=== PATIENT | female | born 1965 | race American Indian/Alaskan Native ===

== ENCOUNTER 2018-04-25 19:57 | Inpatient (IN) | payer OTHER ==
[2018-05-02 16:26] VITALS: BMI 31.1
--- NOTE | 2018-05-02 16:46 | CP.PCM.HP ---
<Samir Greco - Last Filed: 05/02/18 16:50> History of Present Illness - History of Present Illness History of Present Illness: CC: 24 hour video EEG HPI: 52 y/o woman w/ pmh of Hx of PE (2006) and DVT (2007) on AC, seizure disorder, HTN, asthma, anemia presents for 24 hour video EEG. Patient complains of mild headache but otherwise has no complaints. Patient denies dizzines, chest pain, dyspnea, abdominal pain, nausea, vomiting, or fever. PMD: Dr. Dano Gutierrez PMH: Hx of PE on AC, seizure disorder, HTN, asthma, anemia meds: see med list allergies: amoxicillin, metoclopramide PSH: hysterectomy, bowel obstruction, hernia repair, removal of left cyst on ear Fam Hx: brother seizure disorder, mother () DM/HTN, father has prostate cancer SOC: denies smoking, alcohol, and drugs ROS: 12 points assessed and negative unless otherwise reported Present on Admission - Present on Admission Any Indicators Present on Admission: Yes History of DVT/PE: Yes History of Uncontrolled Diabetes: No Urinary Catheter: No Decubitus Ulcer Present: No Review of Systems - Review of Systems All systems: reviewed and no additional remarkable complaints except - Constitutional Constitutional: Headache. absent: Chills, Fever - EENT Eyes: absent: Change in Vision - Cardiovascular Cardiovascular: absent: Chest Pain, Palpitations - Respiratory Respiratory: absent: Dyspnea - Gastrointestinal Gastrointestinal: absent: Abdominal Pain, Nausea, Vomiting - Genitourinary Genitourinary: absent: Dysuria - Integumentary Integumentary: absent: Rash Past Patient History - Infectious Disease Hx of Infectious Diseases: None - Past Social History Smoking Status: Never Smoked - CARDIAC Hx Cardiac Disorders: Yes Hx Hypertension: Yes Other/Comment: lle dvt - PULMONARY Hx Respiratory Disorders: Yes (pe x4 at same time 2006) Hx Asthma: Yes - NEUROLOGICAL Hx Neurological Disorder: Yes Hx Seizures: Yes (hx of 3-4 years ago) - HEENT Hx HEENT Problems: No - RENAL Hx Chronic Kidney Disease: No - ENDOCRINE/METABOLIC Hx Endocrine Disorders: No - HEMATOLOGICAL/ONCOLOGICAL Hx Blood Disorders: Yes Hx Anemia: Yes Other/Comment: iron infusions - INTEGUMENTARY Hx Dermatological Problems: No - MUSCULOSKELETAL/RHEUMATOLOGICAL Hx Falls: No - GASTROINTESTINAL Hx Gastrointestinal Disorders: Yes (chronic constipation) - GENITOURINARY/GYNECOLOGICAL Hx Genitourinary Disorders: No - PSYCHIATRIC Hx Substance Use: No - SURGICAL HISTORY Hx Hysterectomy: Yes Other/Comment: bowel obstruction repair, tubal ligation, sebaceous cyst removed from near Left ear, umbilical hernia repair - ANESTHESIA Hx Anesthesia: Yes Hx Anesthesia Reactions: No Meds Allergies/Adverse Reactions: Allergies Allergy/AdvReac Type Severity Reaction Status Date / Time amoxicillin Allergy RASH Verified 01/15/17 12:10 metoclopramide Allergy RASH Verified 01/15/17 12:10 Physical Exam - Constitutional Appears: Well, Non-toxic, No Acute Distress - Head Exam Head Exam: ATRAUMATIC, NORMAL INSPECTION, NORMOCEPHALIC - Eye Exam Eye Exam: Normal appearance - ENT Exam ENT Exam: Mucous Membranes Moist - Neck Exam Neck exam: Positive for: Full Rom. Negative for: Tenderness - Respiratory Exam Respiratory Exam: Clear to Auscultation Bilateral, NORMAL BREATHING PATTERN. absent: Decreased Breath Sounds, Rales, Rhonchi, Wheezes, Respiratory Distress - Cardiovascular Exam Cardiovascular Exam: REGULAR RHYTHM, RRR, +S1, +S2 - GI/Abdominal Exam GI & Abdominal Exam: Normal Bowel Sounds, Soft. absent: Distended, Tenderness - Extremities Exam Extremities exam: Negative for: pedal edema, tenderness - Neurological Exam Neurological exam: Alert, CN II-XII Intact, Normal Gait, Oriented x3 - Psychiatric Exam Psychiatric exam: Normal Affect, Normal Mood - Skin Skin Exam: Dry, Intact, Normal Color, Warm Assessment & Plan - Assessment and Plan (Free Text) Assessment: 52 y/o woman w/ pmh of Hx of PE (2006) and DVT (2007) on AC, seizure disorder, HTN, asthma, anemia presents for 24 hour video EEG. Plan: Seizure Disorder - Hx of seizure disorder on and off for years - on and off various anticonvulsants due to varying side effects - most currently on topimax, last taken 04/29/2018 - neurology, Dr. Zapata aware - admit to ICU for 24 video EEG Hx of PE and DVT - an coumadin 5 mg PO daily, patient took medication today - patient refusing bloodwork HTN - controlled w/ medication Asthma - controlled w/ medication Prophylactic measures - c/w protonix 40 mg PO BID - zofran for nausea prn <Bruno,Sina D - Last Filed: 05/02/18 18:18> Results - Vital Signs Recent Vital Signs: Last Vital Signs Temp Pulse Resp 14 05/02/18 17:39 BP Pulse Ox Attending/Attestation - Attestation I have personally seen and examined this patient.: Yes I have fully participated in the care of the patient.: Yes I have reviewed all pertinent clinical information: Yes Notes (Text): 05/02/18 18:17 Patient seen and examined with resident. Case was discussed and agreed with assessment.
[2018-05-02] MEDS: Albuterol HFA 90 mcg/actuation (8 g) IH SCH (22:29)
[2018-05-03] MEDS: Albuterol HFA 90 mcg/actuation (8 g) IH SCH ×3 (04:29→16:19)
[2018-05-03] MEDS: Pantoprazole 40 mg EC Tab PO SCH ×2 (06:30→16:19)
--- NOTE | 2018-05-03 08:06 | CP.CCUPN ---
CCU Subjective - Physician Review Events Since Last Encounter (Free Text): Patient awake, no distress, no fever, no vomiting, follow commands, events reviewed CCU Objective - Vital Signs / Intake & Output Intake and Output (Last 8hrs): Intake & Output 05/02/18 05/03/18 05/03/18 22:59 06:59 14:59 Weight 199 lb - Physical Exam Head: Positive for: Atraumatic, Normocephalic Pupils: Positive for: PERRL Extroacular Muscles: Positive for: EOMI Conjunctiva: Positive for: Normal Mouth: Positive for: Moist Mucous Membranes Neck: Positive for: Normal Range of Motion Respiratory/Chest: Positive for: Clear to Auscultation Cardiovascular: Positive for: Regular Rate and Rhythm Abdomen: Positive for: Normal Bowel Sounds Upper Extremity: Positive for: Normal Inspection Lower Extremity: Positive for: Normal Inspection Neurological: Positive for: Speech Normal Psychiatric: Positive for: Alert, Oriented x 3 - Medications Active Medications: Active Medications Generic Name Dose Route Start Last Admin Trade Name Freq PRN Reason Stop Dose Admin Acetaminophen 650 mg 05/02/18 19:46 05/02/18 20:30 Tylenol 325mg Tab PO 650 mg Q6 PRN Administration Headache Albuterol 1 puff 05/02/18 16:28 05/03/18 04:29 Ventolin Hfa 90 Mcg/Actuation (8 G) IH Not Given Q6 JOSE E Losartan Potassium 100 mg 05/02/18 16:30 05/02/18 17:31 Cozaar PO Not Given DAILY JOSE E Meclizine HCl 50 mg 05/02/18 16:28 Antivert PO DAILY PRN Dizziness Ondansetron HCl 4 mg 05/02/18 16:28 Zofran Odt PO Q8 PRN Nausea/Vomiting Pantoprazole Sodium 40 mg 05/03/18 06:00 05/03/18 06:30 Protonix Ec Tab PO 40 mg 0600,1600 JOSE E Administration Propranolol HCl 10 mg 05/02/18 16:30 05/02/18 17:32 Inderal PO Not Given DAILY [facility] Critical Care Progress Note - Nutrition Nutrition: Nutrition Category Date Time Status Heart Healthy Diet [DIET] Diets 05/02/18 Dinner Active Assessment/Plan - Assessment and Plan (Free Text) Assessment: A/P Seizer disorder, h/o PE/DVT, HTN, asthma, anemia - EEG - Neurology follow up - Continue meds
--- NOTE | 2018-05-03 08:16 | CP.PCM.PN ---
Subjective - Date & Time of Evaluation Date of Evaluation: 05/03/18 Time of Evaluation: 10:57 - Subjective Subjective: Patient seen and examined at bedside this morning. There are no acute events overnight, NAD. Patient laying down in bed comfortably and continuing 24 hour video EEG. Currently no seizure activity noted. Patient reports migraine last night that resolved w/ medication. Patient currently denies headache, chest pain, dizziness, dyspnea, abdominal pain, nausea, vomiting, or fever. Objective - Vital Signs/Intake and Output Vital Signs (last 24 hours): Temp Pulse Resp BP Pulse Ox 98 F 77 13 134/79 100 05/02/18 20:00 05/02/18 20:00 05/02/18 20:00 05/02/18 20:00 05/02/18 20:00 - Medications Medications: Current Medications Acetaminophen (Tylenol 325mg Tab) 650 mg PO Q6 PRN PRN Reason: Headache Last Admin: 05/02/18 20:30 Dose: 650 mg Albuterol (Ventolin Hfa 90 Mcg/Actuation (8 G)) 1 puff IH Q6 [facility] Last Admin: 05/03/18 04:29 Dose: Not Given Losartan Potassium (Cozaar) 100 mg PO DAILY [facility] Last Admin: 05/02/18 17:31 Dose: Not Given Meclizine HCl (Antivert) 50 mg PO DAILY PRN PRN Reason: Dizziness Ondansetron HCl (Zofran Odt) 4 mg PO Q8 PRN PRN Reason: Nausea/Vomiting Pantoprazole Sodium (Protonix Ec Tab) 40 mg PO 0600,1600 [facility] Last Admin: 05/03/18 06:30 Dose: 40 mg Propranolol HCl (Inderal) 10 mg PO DAILY [facility] Last Admin: 05/02/18 17:32 Dose: Not Given - Constitutional Appears: Non-toxic, No Acute Distress - Head Exam Head Exam: NORMAL INSPECTION - Eye Exam Eye Exam: Normal appearance - ENT Exam ENT Exam: Mucous Membranes Moist - Neck Exam Neck Exam: Full ROM. absent: Tenderness - Respiratory Exam Respiratory Exam: Clear to Ausculation Bilateral, NORMAL BREATHING PATTERN. absent: Decreased Breath Sounds, Rales, Rhonchi, Respiratory Distress - Cardiovascular Exam Cardiovascular Exam: REGULAR RHYTHM, RRR - GI/Abdominal Exam GI & Abdominal Exam: Soft, Normal Bowel Sounds. absent: Distended, Tenderness - Extremities Exam Extremities Exam: Normal Inspection. absent: Pedal Edema - Neurological Exam Neurological Exam: Alert, Awake, Normal Gait, Oriented x3 - Psychiatric Exam Psychiatric exam: Normal Affect, Normal Mood - Skin Skin Exam: Dry, Intact, Normal Color, Warm Assessment and Plan - Assessment and Plan (Free Text) Assessment: 52 y/o woman w/ pmh of Hx of PE (2006) and DVT (2007) on AC, seizure disorder, HTN, asthma, anemia presents for 24 hour video EEG. Plan: Seizure Disorder - Hx of seizure disorder on and off for years - on and off various anticonvulsants due to varying side effects - most currently on topimax, last taken 04/29/2018 - neurology consulted, Dr. Zapata aware - admit to ICU for 24 video EEG Hx of PE and DVT - an coumadin 5 mg PO daily, patient took medication today - patient refusing bloodwork HTN - controlled w/ medication Asthma - controlled w/ medication Prophylactic measures - c/w protonix 40 mg PO BID - zofran for nausea prn anticipate DC today upon completion of 24 hour video EEG
--- NOTE | 2018-05-03 08:43 | PCM.VEEG ---
Video EEG - Procedure Start Date: 05/02/18 Start Time: 17:30 End Date: 05/03/18 End Time: 08:00 Technical Summary: DATA ACQUISITION: This was a multichannel inpatient video-EEG, a minimum of 22 channels were uti lized, performed in accordance with recommendations specified by the [place] [employer] (Qi Rao et al. ACNS Guideline 1: Minimum Technical Requirements for Performing Clinical Electroencephalography. Journal of Clinical Neurophysiology 2016;33:303-7). The 10-20 electrode placement system was utilized in accordance with guidelines detailed by the International Federation of Clinical Neurophysiology (Oskar So et al. The Ten-Twenty Electrode System of the International Federation. Recommendations for the Practice of Clinical Neurophysiology: Guidelines of the International Federation of Clinical Physiology 1999; EEG Suppl. 52.). DATA REVIEW / SPIKE DETECTION / DIGITAL ANALYSIS: The entire EEG was scanned and reviewed. Synchronized audio and video recording were reviewed at the time of each alarm and whenever an abnormality or suspicious activity was noted. The entire recording was analyzed utilizing an automated digital spike and seizure analysis program and all automatic spike and seizure detections were manually reviewed. A compressed spectral array was displayed and reviewed alongside the raw EEG tracings. In addition, further analysis of the EEG was performed when abnormalities were identified, including montage changes, dipole source localization, and frequency band identification. Video portion of the study is necessary to correlate abnormal EEG activity with clinical behavior. This study was attended 24 hours per day - Interpretation Description of the study: Indication; Epilepsy EEG Finding during wakefulness: During active states, the EEG was characterized by 14-25 Hz, 15-30 uV activity bilaterally in fronto-central regions. Resting wakefulness was characterized by a symmetric posterior dominant rhythm of 9 to 10 Hz, 30-50 uV, which was reactive to eye opening and closing. Drowsiness was associated with slow roving eye movements, slowing and fragmentation of the posterior dominant rhythm, and bilateral 4-7 Hz, 40-70 uV theta activity, sometimes with a shifting predominance. Hyperventilation and photic stimulation were not performed. EEG Finding during sleep: Light sleep was recorded and was characterized by fronto-central slowing at 5-7 H, 50-125 uV, sharp central vertex waves, bilateral sleep spindles, and K- complexes; shifting asymmetries were evident. Deeper stages of sleep were recorded and were characterized an increasing frequency of 1-4 Hz, 50-100 uV delta activity. REM sleep was also recorded and was characterized by mixed frequency (3-15 Hz) low voltage (< 20 uV) activity with clusters of rapid horizontal and vertical eye movements. There were no significant asymmetries noted during sleep. Interictal non-epileptiform abnormalities: None Interictal epileptiform abnormalities: None Ictal epileptiform abnormalities: None There was 1 PB activation, NO EEG changes, probably accidental Induction procedures: None - Impression Impression: This is a normal inpatient Video EEG monitoring study.
--- NOTE | 2018-05-03 15:17 | CP.PCM.CON ---
History of Present Illness - History of Present Illness History of Present Illness: Neurology Consultation Note: Mrs. Rodriguez is a 52-year-old woman, who is a patient of Dr. Peres, referred to me by Dr. Padgett, with a past medical history of migraine headaches, PE (2006) and DVT (2007) on AC, seizure disorder (occasional GTC, usually night terrors), HTN, asthma, anemia, who was admitted for elective 24-hour EEG. She had a migraine yesterday, but states that she feels well today. She had no complaints. Review of Systems - Review of Systems All systems: reviewed and no additional remarkable complaints except Past Patient History - Infectious Disease Hx of Infectious Diseases: None - Past Social History Smoking Status: Never Smoked - CARDIAC Hx Cardiac Disorders: Yes Hx Hypertension: Yes Other/Comment: lle dvt - PULMONARY Hx Respiratory Disorders: Yes (pe x4 at same time 2006) Hx Asthma: Yes - NEUROLOGICAL Hx Neurological Disorder: Yes Hx Seizures: Yes (hx of 3-4 years ago) - HEENT Hx HEENT Problems: No - RENAL Hx Chronic Kidney Disease: No - ENDOCRINE/METABOLIC Hx Endocrine Disorders: No - HEMATOLOGICAL/ONCOLOGICAL Hx Blood Disorders: Yes Hx Anemia: Yes Other/Comment: iron infusions - INTEGUMENTARY Hx Dermatological Problems: No - MUSCULOSKELETAL/RHEUMATOLOGICAL Hx Falls: No - GASTROINTESTINAL Hx Gastrointestinal Disorders: Yes (chronic constipation) - GENITOURINARY/GYNECOLOGICAL Hx Genitourinary Disorders: No - PSYCHIATRIC Hx Substance Use: No - SURGICAL HISTORY Hx Hysterectomy: Yes Other/Comment: bowel obstruction repair, tubal ligation, sebaceous cyst removed from near Left ear, umbilical hernia repair - ANESTHESIA Hx Anesthesia: Yes Hx Anesthesia Reactions: No Meds Allergies/Adverse Reactions: Allergies Allergy/AdvReac Type Severity Reaction Status Date / Time amoxicillin Allergy RASH Verified 01/15/17 12:10 metoclopramide Allergy RASH Verified 01/15/17 12:10 - Medications Medications: Current Medications Acetaminophen (Tylenol 325mg Tab) 650 mg PO Q6 PRN PRN Reason: Headache Last Admin: 05/02/18 20:30 Dose: 650 mg Albuterol (Ventolin Hfa 90 Mcg/Actuation (8 G)) 1 puff IH Q6 JOSE E Last Admin: 05/03/18 09:02 Dose: 1 puff Losartan Potassium (Cozaar) 100 mg PO DAILY [facility] Last Admin: 05/03/18 08:41 Dose: Not Given Meclizine HCl (Antivert) 50 mg PO DAILY PRN PRN Reason: Dizziness Ondansetron HCl (Zofran Odt) 4 mg PO Q8 PRN PRN Reason: Nausea/Vomiting Pantoprazole Sodium (Protonix Ec Tab) 40 mg PO 0600,1600 [facility] Last Admin: 05/03/18 06:30 Dose: 40 mg Propranolol HCl (Inderal) 10 mg PO DAILY [facility] Last Admin: 05/03/18 08:43 Dose: Not Given Physical Exam - Constitutional Appears: Well - Head Exam Head Exam: ATRAUMATIC, NORMAL INSPECTION, NORMOCEPHALIC - Eye Exam Eye Exam: EOMI, Normal appearance, PERRL Pupil Exam: NORMAL ACCOMODATION, PERRL - ENT Exam ENT Exam: Mucous Membranes Moist, Normal Exam - Neck Exam Neck exam: Positive for: Normal Inspection - Respiratory Exam Respiratory Exam: Clear to Auscultation Bilateral, NORMAL BREATHING PATTERN - Cardiovascular Exam Cardiovascular Exam: REGULAR RHYTHM, +S1, +S2 - GI/Abdominal Exam GI & Abdominal Exam: Normal Bowel Sounds, Soft. absent: Tenderness - Extremities Exam Extremities exam: Positive for: normal inspection - Back Exam Back exam: NORMAL INSPECTION - Neurological Exam Neurological exam: Alert, CN II-XII Intact, Normal Gait, Oriented x3, Reflexes Normal - Psychiatric Exam Psychiatric exam: Normal Affect, Normal Mood - Skin Skin Exam: Dry, Intact, Normal Color, Warm Results - Vital Signs Recent Vital Signs: Last Vital Signs Temp 97.4 F L 05/03/18 12:00 Pulse 95 H 05/03/18 12:00 Resp 16 05/03/18 12:00 BP 133/78 05/03/18 12:00 Pulse Ox 100 05/03/18 12:00 Assessment & Plan (1) History of seizure Assessment and Plan: At this point, the EEG has been evaluate 12 hours post initiation and there were no abnormalities noted. The patient was started on Topamax, but could not tolerate it due to blurry vision. The patient will be discontinued form the EEG at 6 PM, or 24 hours after initiation. She will follow up with Dr. Kelley, her neurologist, as an outpatient. Thank you for this consultation. Status: Acute
[2018-05-03 16:29] VITALS: TEMP 98
[2018-05-03 18:47] VITALS: BP 117/47; PULSE 65; RESP 24; O2SAT 98
--- NOTE | 2018-05-06 10:04 | PQF ---
PROVIDER RESPONSE TEXT: Unable to determine REVIEWER QUERY TEXT: Clarification of Clinical Diagnostic Findings Chronic DVT or PE or both?; (there are different ICD-10 codes for hx. of venous thrombosis and emboli sm versus chronic DVT) OR: Unable to determine OR: Other explanation of clinical finding H and P includes ; Hx of PE and DVT - an coumadin 5 mg PO daily, patient took medication today - patient refusing bloodwork The patient's Clinical Indicators include: - Query created by: Virginia Merchant on 05/05/2018 12:59 PM Electronically signed by: Danae Padgett 05/06/2018 10:02 AM
== END 2018-05-03 19:10 | disposition home or self-care (01) | DRG 890 ==
LOC: H.ICU/CCU 05-02 16:26
PROVIDERS: ADMIT Hospitalist; ATTEND Hospitalist
DX: G40.909 Epilepsy, unspecified, not intractable, without status epilepticus (principal); G43.909 Migraine, unspecified, not intractable, without status migrainosus; J45.909 Unspecified asthma, uncomplicated; Z86.711 Personal history of pulmonary embolism; Z86.718 Personal history of other venous thrombosis and embolism; I10 Essential (primary) hypertension; Z79.01 Long term (current) use of anticoagulants; Z88.0 Allergy status to penicillin; D64.9 Anemia, unspecified